=== PATIENT | female | born 1990 | race Caucasian/White ===

== ENCOUNTER → 2019-07-04 | Outpatient (CLI) | payer OTHER | END | disposition home or self-care (01) | LOC: LAB SHORT 13:31 → PLD 13:31 | DX: L73.8 Other specified follicular disorders (principal) | CPT/HCPCS: 88305; 88312 ==

== ENCOUNTER → 2021-03-11 | Outpatient (CLI) | payer OTHER ==
[~2021-03-11] MED LIST: DOCU100 PO; IBUP800 PO; PRENATAL TABLE1 EAC2 PO; Percocet 5-3251 EACH PO
== END | disposition home or self-care (01) ==
LOC: LAB 08:03 → LAB SHORT 08:03
DX: L90.5 Scar conditions and fibrosis of skin (principal)
CPT/HCPCS: 88305

== ENCOUNTER 2022-06-26 04:35 | Inpatient (IN) | payer OTHER ==
[~2022-06-26] VITALS: Ht 167.6 cm; Wt 82.7 kg
[2022-06-26 05:56] LABS: BASOPHILS ABSOLUTE AUTO 0.01 K/mm3 (0.00-0.23); BASOPHILS PERCENT AUTO 0 % (0-2); EOSINOPHILS ABSOLUTE AUTO 0.01 K/mm3 (0.00-0.68); EOSINOPHILS PERCENT AUTO 0 % (0-6); Hematocrit 33.3 % (33.0-51.0); Hemoglobin 11.4 g/dL (11.5-16.0); IMMATURE GRAN ABSOLUTE AUTO 0.02 K/mm3 (0.00-0.10); IMMATURE GRAN PERCENT AUTO 1 % (0-1); LYMPHOCYTES ABSOLUTE AUTO 1.12 K/mm3 (0.84-5.20); LYMPHOCYTES PERCENT AUTO 26 % (21-46); MONOCYTES ABSOLUTE AUTO 0.34 K/mm3 (0.16-1.47); MONOCYTES PERCENT AUTO 8 % (4-13); Mean Corpuscular HGB 30.2 pg (26.0-34.0); Mean Corpuscular HGB Conc 34.2 g/dL (31.5-36.5); Mean Corpuscular Volume 88 fL (80-100); Mean Platelet Volume 12.4 fL (9.1-12.4); NEUTROPHILS ABSOLUTE AUTO 2.89 K/mm3 (1.96-9.15); NEUTROPHILS PERCENT AUTO 66 % (41-73); Platelet Count 153 K/mm3 (150-400); RDW Coefficient Variation 13.2 % (11.7-14.2); RDW Standard Deviation 42.7 fL (35.1-46.3); Red Blood Cell Count 3.78 M/mm3 (3.80-5.20); White Blood Cell Count 4.39 K/mm3 (4.00-11.30)
[2022-06-26 10:02] LABS: PCO2 Cord - Arterial 49.2 mmHg (40-50); PO2 Cord - Arterial 18.5 mmHg (16-20); pH Cord - Arterial 7.33 (7.28-7.35)
[2022-06-26 10:04] LABS: PCO2 Cord - Venous 37.3 mmHg (40-50); PO2 Cord - Venous 29.8 mmHg (28-32); pH Umbilical Cord - Venous 7.38 (7.26-7.35)
--- NOTE | 2022-06-26 10:04 | NUR ---
06/26/22 1004 CassandraKelly Chandler VIABLE MALE BORN 0945. APGARS 05/[birth year]. WEIGHT 3970 GM 8LB 12OZ; HEAD 14.5 INCH; CHEST 13.25 INCH; LENGTH 21.5 INCH. CORD SEGMENT FOR CORD GAS SENT W/T.VIGNESH RT. CORD BLOOD SENT W/S. CHUY ARVIZU. PLACENTA TO PATHOLOGY FOR HISTORY OF COVID IN .
[2022-06-27 05:56] LABS: BASOPHILS ABSOLUTE AUTO 0.01 K/mm3 (0.00-0.23); BASOPHILS PERCENT AUTO 0 % (0-2); EOSINOPHILS ABSOLUTE AUTO 0.02 K/mm3 (0.00-0.68); EOSINOPHILS PERCENT AUTO 0 % (0-6); Hematocrit 28.5 % (33.0-51.0); Hemoglobin 9.4 g/dL (11.5-16.0); IMMATURE GRAN ABSOLUTE AUTO 0.03 K/mm3 (0.00-0.10); IMMATURE GRAN PERCENT AUTO 1 % (0-1); LYMPHOCYTES ABSOLUTE AUTO 0.95 K/mm3 (0.84-5.20); LYMPHOCYTES PERCENT AUTO 15 % (21-46); MONOCYTES ABSOLUTE AUTO 0.34 K/mm3 (0.16-1.47); MONOCYTES PERCENT AUTO 5 % (4-13); Mean Corpuscular HGB 29.4 pg (26.0-34.0); Mean Corpuscular Volume 89 fL (80-100); NEUTROPHILS PERCENT AUTO 79 % (41-73); Platelet Count 112 K/mm3 (150-400); RDW Coefficient Variation 13.4 % (11.7-14.2); RDW Standard Deviation 43.5 fL (35.1-46.3); White Blood Cell Count 6.55 K/mm3 (4.00-11.30)
--- NOTE | 2022-06-28 11:26 | NUR ---
Pt sitting in bed, holding sleeping nb. Has been bottle feeding pumped breast milk. Reports pain "ok". Denies other needs at this time.
[2022-06-28] MEDS ORDERED: Percocet 5-3251 EACH PO (12:39)
[2022-06-28] MEDS ORDERED: IBUP800 PO (12:41)
--- NOTE | 2022-06-28 16:20 | NUR ---
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 Pt verbalized understanding, denied additional questions or concerns. ID bands matched w/nb and verification form. Pt d/c'd home ambulatory to care of .
== END 2022-06-28 16:20 | disposition home or self-care (01) | DRG 788 ==
LOC: OBS 04:35 → BC 04:36 → OBS 05:19 → BC 05:22
PROVIDERS: Advanced Practice Midwife; Obstetrics & Gynecology; ADMIT Obstetrics & Gynecology
PROC: 3E0234Z Introduction of Serum, Toxoid and Vaccine into Muscle, Percutaneous Approach (ICD-10-PCS; 2022-06-26)
PROC: 10D00Z1 Extraction of Products of Conception, Low, Open Approach (ICD-10-PCS; principal; 2022-06-26 07:15)
DX: O34.211 Maternal care for low transverse scar from previous cesarean delivery (principal); Z86.16 Personal history of COVID-19; Z37.0 Single live birth; O99.03 Anemia complicating the puerperium; D64.9 Anemia, unspecified; Z67.11 Type A blood, Rh negative; Z3A.38 38 weeks gestation of pregnancy; Z23 Encounter for immunization; O26.893 Other specified pregnancy related conditions, third trimester; O42.02 Full-term premature rupture of membranes, onset of labor within 24 hours of rupture
CPT/HCPCS: 36415; 82803; 85025; 85460; 86850; 86870; 86900; 86901; 88307; A9270; J0456; J0690; J1885; J2370; J2590; J2765; J2791; J3010; J7050; J7120

== ENCOUNTER → 2024-12-11 | Outpatient (CLI) | payer OTHER ==
[~2024-12-11] MED LIST changes: +MAGNESIUM OXID500 MG; +UNISOM PM PAIN1 EACH
== END ==
LOC: LAB SHORT 14:29 → LAB 14:29
DX: R35.0 Frequency of micturition (principal)
CPT/HCPCS: 87077; 87086; 87186